=== PATIENT | female | born 1960 | race Caucasian/White ===

== ENCOUNTER → 2020-12-21 14:58 | Outpatient (BNVA) | payer OTHER, SELFPAY | PROVIDERS: Visit Provider Emergency Medicine | DX: Z20.822 Contact with and (suspected) exposure to COVID-19 (principal) | CPT/HCPCS: 87635 ==

== ENCOUNTER → 2021-11-19 14:04 | Outpatient (BNVA) | payer BC, SELFPAY | PROVIDERS: Visit Provider Psychiatry & Neurology Psychiatry | DX: F32.2 Major depressive disorder, single episode, severe without psychotic features (principal) | CPT/HCPCS: 80053; 80061; 80178; 82306; 84439; 84443; 84481; 85025 ==

== ENCOUNTER 2022-06-23 10:54 | Outpatient (CLI) | payer BC, SELFPAY ==
--- NOTE | 2022-06-23 11:34 | MM_ITS ---
WS: [id number] SCREENING DIGITAL BREAST TOMOSYNTHESIS MAMMOGRAM WITH CAD HISTORY: SCREENING COMPARISON: None available. Bilateral CC and MLO with tomosynthesis and synthetic mammography submitted. Computer aided detection analyzed. Breast composition: There are scattered areas of fibroglandular density. Well-circumscribed 15 x 13 m m mass in the anterior LEFT breast near 7:00. This is just posterior to the nipple. No distortion. Be nign calcifications in each breast. MM/[place] [id number] IMPRESSION: BI-RADS: 0-Incomplete: Need additional imaging evaluation FOLLOW UP: Need Additional Imaging Recommendation: LEFT breast ultrasound anterior breast near 7:00.
== END 2022-06-23 10:55 | disposition home or self-care (01) ==
PROVIDERS: Visit Provider Family Medicine
DX: Z12.31 Encounter for screening mammogram for malignant neoplasm of breast (principal)
CPT/HCPCS: 77063; 77067

== ENCOUNTER 2022-07-21 15:14 | Outpatient (CLI) | payer BC, SELFPAY ==
--- NOTE | 2022-07-21 15:15 | US_ITS ---
WS: [email or web address] ULTRASOUND LEFT BREAST HISTORY: Abnormal finding on mammogram COMPARISON: Mammogram 06/23/2022 TECHNIQUE: 2-D and Doppler. LEFT breast 7:00, subareolar is imaged. This corresponds to the mammographic abnormality. There is a mixed echogenicity mass which is slightly bilobed measuring 1.6 x 1.2 x 1.1 cm. There are both cystic and solid components. The solid component does move but there is also some increased vascularity. Fa vor this is probably a complex cystic nodule but due to the solid component recommend further evaluat ion. US/US breast LT limited* [id number] IMPRESSION: BI-RADS: 4-Suspicious Finding-Biopsy Should Be Considered FOLLOW-UP: Biopsy Recommended Ultrasound-guided biopsy recommended of the complex cystic nodule LEFT breast a t 7:00.
== END 2022-07-21 15:15 | disposition home or self-care (01) ==
LOC: RAD 15:19
PROVIDERS: PCP Family Medicine; Visit Provider Family Medicine
DX: R92.8 Other abnormal and inconclusive findings on diagnostic imaging of breast (principal); N63.24 Unspecified lump in the left breast, lower inner quadrant
CPT/HCPCS: 76642

== ENCOUNTER 2022-08-20 07:59 | Outpatient (CLI) | payer BC, SELFPAY ==
--- NOTE | 2022-08-20 08:45 | US_ITS ---
WS: [email or web address] ULTRASOUND-GUIDED LEFT BREAST BIOPSY CLINICAL INFORMATION: Suspicious cyst on mammogram/US COMPARISON: July 21, 2022 FINDINGS: The procedure including risks, benefits, and complications were discussed with the patient who agreed to proceed. Using sterile technique patient was prepped and draped in the usual sterile fashion. Aft er 1% lidocaine utilizing real-time ultrasound guidance 4 14-gauge cores were obtained of the LEFT br east lesion at the 7 o'clock position subareolar. Cystic portion of the nodule collapsed after the in itial biopsy. A titanium clip was placed in the biopsy cavity. No immediate complications. Pathology demonstrates A. Breast, left, 7 o'clock, subareolar , biopsy: - Benign fibrocystic disease. - No malignancy identified. US/[place] [id number] IMPRESSION: 1. Uncomplicated ultrasound-guided LEFT breast biopsy. 2. The pathology demonstrates benign fibrocystic disease. No malignancy identi fied. 3. Recommend return to annual screening mammography. BI-RADS: 2-Benign FOLLOW UP: 1 Year Follow-up
== END 2022-08-20 08:00 | disposition home or self-care (01) ==
LOC: RAD 08:01
PROVIDERS: PCP Family Medicine; Visit Provider Family Medicine
DX: R92.8 Other abnormal and inconclusive findings on diagnostic imaging of breast (principal); N63.42 Unspecified lump in left breast, subareolar; N60.12 Diffuse cystic mastopathy of left breast
CPT/HCPCS: 19083; 88305

== ENCOUNTER → 2022-10-27 10:16 | Outpatient (BNVA) | payer BC, SELFPAY | PROVIDERS: PCP Family Medicine; Visit Provider Family Medicine | DX: Z51.81 Encounter for therapeutic drug level monitoring (principal); E03.9 Hypothyroidism, unspecified; Z13.220 Encounter for screening for lipoid disorders; I10 Essential (primary) hypertension | CPT/HCPCS: 80053; 80061; 83036; 84439; 84443; 85025 ==

== ENCOUNTER → 2022-12-01 12:01 | Outpatient (BNVA) | payer BC, SELFPAY | PROVIDERS: PCP Family Medicine; Visit Provider Family Medicine | DX: Z51.81 Encounter for therapeutic drug level monitoring (principal) | CPT/HCPCS: 80178 ==

== ENCOUNTER 2023-02-04 12:11 | Outpatient (CLI) | payer BC, SELFPAY ==
--- NOTE | 2023-02-04 12:25 | XR_ITS ---
WS: [email or web address] Exam: XR lumbar spine 2-3V* [id number] Date/Time of Exam: 02/04/2023 12:33 PM Reason For Exam: Right lumbar radiculopathy No fracture or dislocation. Disc spaces are well-maintained. Slight levoscoliosis that may be positio nal. Posterior elements are intact. A 12 x 5 mm calcification seen along the LEFT transverse process of L5. IMPRESSION: 1. No fracture or malalignment. 2. 12 x 5 mm LEFT paraspinal calcification at about the level of L5. This is nonspecific in appearanc e but a urinary tract stone might have this appearance.
== END 2023-02-04 12:12 | disposition home or self-care (01) ==
PROVIDERS: PCP Family Medicine; Visit Provider Family Medicine
DX: M54.16 Radiculopathy, lumbar region (principal)
CPT/HCPCS: 72100

== ENCOUNTER 2023-06-16 13:25 | Observation (INO) | payer BC, SELFPAY ==
[2023-06-12 11:00] LABS: Basophils # 0.1 10^3/uL (0.0-0.1); Basophils % 0.8 %; Eosinophils # 0.4 10^3/uL (0.0-0.8); Eosinophils % 3.1 %; Hematocrit 42.3 % (36-47); Lymphocytes # 3.1 10^3/uL (0.8-4.8); Lymphocytes % 26.6 %; Mean Corpuscular HGB Conc 31.7 g/dL (30-55); Mean Corpuscular Hemoglobin 28.5 pg (27-33); Mean Corpuscular Volume 89.8 fl (85-98); Monocytes # 0.5 10^3/uL (0.2-0.9); Monocytes % 4.1 %; Neutrophils # 7.46 10^3/uL (1.8-7.7); Neutrophils % 65.1 %; Nucleated Red Blood Cells % 0 %; Platelet Count 383 10^3/cmm (157-399); Red Blood Count 4.71 10^6/uL (3.85-5.65); Red Cell Distribution Width 12.2 % (12.1-15.1); White Blood Count 11.47 10^3/uL (3.29-11.43)
[2023-06-12 11:11] LABS: Add Urine Culture? Yes; Add Urine Microscopic? YES; Bacteria Urine 3+ /hpf; Bilirubin Urine Neg (Negative); Blood Urine 3+ (Negative); Glucose Urine UA Norm (Normal); Ketones Urine 1+ (Negative); Leukocyte Esterase Urine 2+ (Negative); Nitrate Urine Positive (Negative); Protein Urine Trace (Negative); RBC Urine 0-4 /hpf (0-2); Specific Gravity, Urine 1.015 (1.005-1.030); Urine Appearance Cloudy (CLEAR); Urine Color Yellow (Yellow); Urobilinogen Urine Norm (Negative); WBC Urine >100 /hpf (0-5); pH Urine 7 (5-7)
[2023-06-12 11:19] LABS: Alanine Aminotransferase 10 U/L (0-33); Alkaline Phosphatase 101 U/L (35-105); Anion Gap 12.3 (5-19); Aspartate Amino Transferase 13 U/L (0-32); Blood Urea Nitrogen 7 mg/dL (8-23); Calcium 9.6 mg/dL (8.5-10.5); Carbon Dioxide 24 mmol/L (22-29); Chloride 107 mmol/L (98-107); Globulin 3.4 g/dL (1.3-4.6); Glomerular Filtration Rate 72.7 mL/min (90-130); Glucose 109 mg/dL (65-115); Osmolality Calculated 287 mOsm/kg (285-295); Potassium 4.3 mmol/L (3.5-5.1); Sodium 139 mmol/L (136-145); Total Bilirubin 0.3 mg/dL (0.15-1.2); Total Protein 7.4 g/dL (6.6-8.7)
[2023-06-16] VITALS (16 sets, daily range): BP systolic 107–183; BP diastolic 59–107; PULSE 64–84; RESP 7–18; TEMP 36.2–36.8; O2SAT 90–100; BMI 30.4
[2023-06-16] MEDS: enoxaparin 30 mg/0.3 mL Syringe SUBCUT (08:38)
[2023-06-16] MEDS: sodium chloride 0.9% 500 ML IV (08:38)
[2023-06-16] MEDS: sodium chloride 0.9% 1,000 ML 10 ML IV (08:40)
[2023-06-16] MEDS: scopolamine 1.5 Patch 1 PATCH TRANSDERMA (08:50)
--- NOTE | 2023-06-16 08:51 | P.ANESASSM_ITS ---
Pre-Anesthetic Assessment Height/Weight: Height 1.73 m Weight 90.718 kg Temp Pulse Resp BP Pulse Ox O2 Del Method 97.2 F L 84 17 183/107 94 Room Air 06/16/23 08:23 06/16/23 08:23 06/16/23 08:23 06/16/23 08:23 06/16/23 08:23 06/16/23 08:24 Preop Diagnosis: CYstocele stage 2, Mix urinary incontinence Operation Date: 06/16/23 09:55 Proposed Procedures p Anterior colporrhaphy 15051, Midurethral sling 29075 N81.10, N39.3(Not Applicable) - Tee Gomez MD s Sling Single Incision Midurethral Sling(Not Applicable) - Tee Gomez MD Was Beta Aleks taken within 24 hours: Yes Was Clonidine taken within 24 hours: N/A Last intake: Intake Last Liquid Date 06/15/23 Last Liquid Time 22:30 Last Solid Date 06/15/23 Last Solid Time 22:30 Social No tobacco Exam alert and oriented x 3 Airway Submandibular: within normal limits Cervical ROM: within normal limits Mallampati: Class III History/ROS No significant history except as noted and No significant complaints CV/HEM Hypertension Metabolic Hyperlipidemia and Thyroid Disease Musc/skel Lower Back Pain Neuropsych Anxiety Anesthetic Plan ASA status: 2 Anesthesia: General Risk of > 500 ml blood loss (7ml/kg in children): No Medications/Allergies Home Medications Medication Instructions Recorded Confirmed Last Taken Type desvenlafaxine succinate 50 mg 50 mg PO DAILY 12/21/20 06/16/23 06/15/23 History tablet,extended release 24 hr (Pristiq) lithium carbonate 450 mg 450 mg PO DAILY 12/21/20 06/16/23 06/15/23 History tablet,extended release trazodone 50 mg tablet 50 mg PO DAILY 09/03/22 06/16/23 06/15/23 History bupropion HBr 348 mg 348 mg PO DAILY 02/26/23 06/16/23 06/15/23 History tablet,extended release 24 hr (Aplenzin) cyclobenzaprine 10 mg tablet 10 mg PO TID PRN muscle spasm #30 03/30/23 06/16/23 06/09/23 Rx tabs carvedilol 12.5 mg tablet 12.5 mg PO BID #60 tabs 11/08/23 01/09/24 01/09/24 Rx oxybutynin chloride 5 mg 5 mg PO DAILY #30 tabs 04/17/23 06/16/23 06/15/23 Rx tablet,extended release 24 hr atorvastatin 10 mg tablet 10 mg PO BEDTIME 06/12/23 06/16/23 06/15/23 History levothyroxine 112 mcg tablet 112 mcg PO DAILY 06/12/23 06/16/23 06/16/23 History Allergies Allergy/AdvReac Type Severity Reaction Status Date / Time No Known Allergies Allergy Verified 06/04/23 08:00 Current Medications Generic Name Dose Route Start Last Admin Trade Name Freq PRN Reason Stop Dose Admin Sodium Chloride 500 mls @ 500 mls/hr 06/16/23 08:12 06/16/23 08:38 Sodium Chloride 0.9% IV 06/16/23 09:11 500 mls/hr ONCE ONE Administration Sodium Chloride 1,000 mls @ 30 mls/hr 06/16/23 08:15 06/16/23 08:40 Sodium Chloride 0.9% IV 06/17/23 08:14 10 mls/hr .Q24H KELLY Administration PFSH Anesthesia Medical History Major depression Hypothyroidism Hypertension Surgical History Hx of cataract surgery December 2021 Social History Smoking and tobacco/nicotine status: never used tobacco/nicotine Alcohol intake: current Alcohol intake frequency: holidays/special occasions only Data Anesthesia 06/12/23 10:37 06/12/23 10:37 Cardiac Studies: 2 No Data to Display
[2023-06-16] MEDS: midazolam 1 mg/mL INJ 2 mL 2 MG IVP (09:05)
--- NOTE | 2023-06-16 11:01 | W.PM.OPSUD ---
Surgery/Procedure H&P Update DATE OF PROCEDURE: June 16, 2023 DATE H&P PERFORMED: 06/04/23 H&P UPDATE INFORMATION: I have reviewed H&P completed within last 30 days, I have examined patient prior to procedure and No changes to prior documentation PREOP DIAGNOSIS: CYstocele stage 2, Mix urinary incontinence PLANNED PROCEDURE: Operation Date: 06/16/23 09:55 Proposed Procedures p Anterior colporrhaphy 57401, Midurethral sling 14199 N81.10, N39.3(Not Applicable) - Tee Gomez MD s Sling Single Incision Midurethral Sling(Not Applicable) - Tee Gomez MD
[2023-06-16] MEDS: ceFAZolin 2,000 MG in sodium chloride 0.9% (plus) 50 ML 100 MG IV (11:15)
[2023-06-16] MEDS: lidocaine-epi 2% 20 mL INJ INJECTION (11:55)
--- NOTE | 2023-06-16 12:34 | PM.OP ---
Operative Report Date of procedure: June 16, 2023 Pre-op diagnosis: Cystocele Mixed urinary incontinence Post-op diagnosis: same Procedure done: Single incision mid urethral sling Implants: Coloplast Altis midurethral sling Specimens removed/disposition: None Surgeon: Tee Gomez MD Estimated blood loss (mL): 10 IV fluids (mL): 800 Urine output (mL): 600 Complications: None Findings: After placement of mid urethral sling the cystocele resolved and no anterior colporrhaphy was needed. Procedure: After obtaining informed consent, the patient was taken to the operating room and placed in the supine position, given general anesthesia, and prepped and draped in sterile fashion. The abdomen, vulva and vagina were prepped and draped in a sterile manner. A time out procedure was performed. The anterior vaginal mucosa beneath the midurethra was infiltrated with 0.5% Marcaine with epinephrine. A vertical midline incision was made beneath the midurethra, nearly 1.5 cm length. Careful submucosal dissection was performed bilaterally up to the interior portion of the inferior pubic ramus. The insertion of adductor longus tendon on the patient?s pubic ramus was identified as reference land monalisa. Palpated the notch along the internal edge of ischiopubic ramus where the adductor longus tendon and the inferior pubic ramus meet. The Altis single incision sling (SIS) was selected. Then the needle of the SIS inserted aiming at the location of this notch. One of the integrated self-fixating tips place onto the needle by sliding it over the end of the needle. The needle/sling assembly was inserted toward the location of identified reference notch making sure that the flat of the handle is perpendicular to the desired path. The needle was tracked along the posterior surface of the ischiopubic ramus until the midline monalisa on the mesh is approximately at the midline position under the urethra. The needle was removed and the same was repeated on the contralateral side until the appropriate sling tension under the urethra was achieved ensuring that the mesh lays flat. The needle was removed and vaginal incision was closed in a running interlocking fashion with 2-0 Vicryl. After placement of the single incision mid urethral slingThe mild cystocele resolved. No anterior colporrhaphy was needed. Then the Damon catheter was removed and cystoscope was inserted. The bladder was filled with sterile water. Complete evaluation of the bladder mucosa was performed noting no lacerations, dimpling, tears, bleeding of the mucosa or muscular layers. Both ureteral orifices were identified. Prompt excretion of urine from both ureteral orifices was noted. Cystoscope was withdrawn. The Damon catheter was replaced. Excellent hemostasis was obtained. A vaginal pack is placed overnight as postoperative support for the vaginal tissues after graft placement and closure of vaginal incisions. Sponge, lap, needle, and instrument counts were correct times three. The patient was taken to the recovery room, awake and in stable condition.
[2023-06-16] MEDS: dextrose 5%-lactated ringers 1,000 ML 125 ML IV ×2 (14:20→22:39)
[2023-06-16] MEDS: ketorolac 30 mg/mL INJ IVP ×2 (14:23→19:49)
[2023-06-16] MEDS: ondansetron 2 mg/ML SDV 2 mL 4 MG IVP (16:47)
[2023-06-16] MEDS: HYDROcodone-acetaminophen 5-325 mg Tablet PO (16:47)
--- NOTE | 2023-06-16 16:56 | ANE.PACU2 ---
Inpatient post-anesthesia follow up: Airway intact: Yes Vital signs: Temperature 98.3 F Pulse Rate 80 Respiratory Rate 16 Blood Pressure 144/67 Pulse Oximetry 98 Oxygen Delivery Me thod Room Air Oxygen Flow Rate 8 Fraction of Inspir ed Oxygen Hydration adequate: Yes Nausea and vomiting: No Pain level: 3 Mental status: Baseline
[2023-06-16] MEDS: carvedilol 12.5 mg Tablet PO (18:14)
[2023-06-16] MEDS: docusate sodium 100 mg Capsule PO (18:14)
[2023-06-16] MEDS: atorvastatin 40 mg Tablet 20 MG PO (22:10)
[2023-06-17 01:16] VITALS: BP 121/60; PULSE 66; RESP 16; TEMP 36.6; O2SAT 95
[2023-06-17 05:32] VITALS: BP 132/65; PULSE 68; RESP 14; TEMP 36.7; O2SAT 97
[2023-06-17 06:26] LABS: Hematocrit 39.4 % (36-47); Mean Corpuscular HGB Conc 31.5 g/dL (30-55); Mean Corpuscular Hemoglobin 28.5 pg (27-33); Mean Corpuscular Volume 90.6 fl (85-98); Platelet Count 362 10^3/cmm (157-399); Red Blood Count 4.35 10^6/uL (3.85-5.65); Red Cell Distribution Width 11.9 % (12.1-15.1); White Blood Count 15.84 10^3/uL (3.29-11.43)
[2023-06-17] MEDS: lithium carbonate ER 450 mg Tablet PO (09:34)
[2023-06-17] MEDS: oxybutynin chloride XL 5 MG TABLET PO (09:34)
[2023-06-17] MEDS: docusate sodium 100 mg Capsule PO (09:34)
[2023-06-17] MEDS: levothyroxine 112 mcg Tablet PO (09:35)
[2023-06-17] MEDS: carvedilol 12.5 mg Tablet PO (09:35)
[2023-06-17] MEDS: desvenlafaxine 50 mg Tablet PO (09:35)
[2023-06-17 09:39] VITALS: BP 144/63; PULSE 64; RESP 18; TEMP 37; O2SAT 98
--- NOTE | 2023-06-17 09:41 | P.DS_ITS ---
Discharge Providers SCHOOL BUS TECHNICIAN Date of Admission: 06/16/23 13:25 Date of Discharge: 06/17/23 Attending Provider at Admission: Tee Gomez MD Attending Provider at Discharge: Tee Gomez MD Primary SCHOOL BUS TECHNICIAN: Tee Gomez MD Primary Care Provider: Oh Machado MD Reason for Visit Reason for Visit: N81.10, N39.3 Hospital Course Hospital Course Mrs. Goel 63-year-old female with a history of mixed incontinence and cystocele. She was admitted for planned anterior colporrhaphy and single incision mid urethral sling. After performing the mid urethral sling the small cystocele resolved and no anterior colporrhaphy was performed. Overnight observation was uneventful. PVR was within normal limits. Tolerating diet well. Ambulating without difficulty. The patient was counseled regarding pelvic rest for 6 weeks (no sex, no tampons, no vaginal douches). Return to the emergency room if any fever, increased bleeding or pain. Physical Exam Narrative: GA: Alert and oriented ?3. HEENT: WNL. Heart: Regular rate and rhythm. Lungs: Clear to auscultation bilaterally. Abdomen: Bowel sounds present, nontender. HOME THEATER INSTALLER: Spotting bleeding. Extremities: No edema, no cyanosis, no calves pain. Urinary Catheter Management: Damon: Cath Placed During This Visit: yes, but has since been removed by the nurse Reason for Continuing Indwelling Catheter: Decision to DC Catheter Urinary Catheter Date of Insertion: 06/16/23 Urinary Catheter Time of Insertion: 11:55 Date Urinary Catheter Removed: 06/17/23 Time Urinary Catheter Discontinued: 05:41 History History History 3 Term 3 0 Miscarriages/Ectopic 0 Living Children 3 Discharge Data Studies Completed and Pending Laboratory Results WBC 15.84 10^3/uL (3.29-11.43) H 06/17/23 06:20 RBC 4.35 10^6/uL (3.85-5.65) 06/17/23 06:20 Hgb 12.40 g/dL (11.27-16.99) 06/17/23 06:20 Hct 39.4 % (36-47) 06/17/23 06:20 MCV 90.6 fl (85-98) 06/17/23 06:20 MCH 28.5 pg (27-33) 06/17/23 06:20 MCHC 31.5 g/dL (30-55) 06/17/23 06:20 RDW 11.9 % (12.1-15.1) L 06/17/23 06:20 Plt Count 362 10^3/cmm (157-399) 06/17/23 06:20 MPV 10.0 fL (7.4-10.4) 06/17/23 06:20 Neut % (Auto) 65.1 % 06/12/23 10:37 Lymph % (Auto) 26.6 % 06/12/23 10:37 Stephens % (Auto) 4.1 % 06/12/23 10:37 Eos % (Auto) 3.1 % 06/12/23 10:37 Baso % (Auto) 0.8 % 06/12/23 10:37 Neut # (Auto) 7.46 10^3/uL (1.8-7.7) 06/12/23 10:37 Lymph # (Auto) 3.1 10^3/uL (0.8-4.8) 06/12/23 10:37 Stephens # (Auto) 0.5 10^3/uL (0.2-0.9) 06/12/23 10:37 Eos # (Auto) 0.4 10^3/uL (0.0-0.8) 06/12/23 10:37 Baso # (Auto) 0.1 10^3/uL (0.0-0.1) 06/12/23 10:37 Nucleated RBC % (auto) 0 % 06/12/23 10:37 Nucleated RBCs # 0.0 /100WBC 06/12/23 10:37 Sodium 139 mmol/L (136-145) 06/12/23 10:37 Potassium 4.3 mmol/L (3.5-5.1) 06/12/23 10:37 Chloride 107 mmol/L (98-107) 06/12/23 10:37 Carbon Dioxide 24 mmol/L (22-29) 06/12/23 10:37 Anion Gap 12.3 (5-19) 06/12/23 10:37 BUN 7 mg/dL (8-23) L 06/12/23 10:37 Creatinine 0.8 mg/dL (0.5-0.9) 06/12/23 10:37 GFR Calculation 72.7 mL/min (90-130) L 06/12/23 10:37 Glucose 109 mg/dL (65-115) 06/12/23 10:37 Calculated Osmolality 287 mOsm/kg (285-295) 06/12/23 10:37 Calcium 9.6 mg/dL (8.5-10.5) 06/12/23 10:37 Total Bilirubin 0.3 mg/dL (0.15-1.2) 06/12/23 10:37 AST 13 U/L (0-32) 06/12/23 10:37 ALT 10 U/L (0-33) 06/12/23 10:37 Alkaline Phosphatase 101 U/L (35-105) 06/12/23 10:37 Total Protein 7.4 g/dL (6.6-8.7) 06/12/23 10:37 Albumin 4.0 g/dL (3.5-5.2) 06/12/23 10:37 Globulin 3.4 g/dL (1.3-4.6) 06/12/23 10:37 Urine Color Yellow (Yellow) 06/12/23 10:30 Urine Appearance Cloudy (CLEAR) A 06/12/23 10:30 Urine pH 7 (5-7) 06/12/23 10:30 Ur Specific [place] 1.015 (1.005-1.030) 06/12/23 10:30 Urine Protein Trace (Negative) 06/12/23 10:30 Urine Glucose (UA) Norm (Normal) 06/12/23 10:30 Urine Ketones 1+ (Negative) H 06/12/23 10:30 Urine Blood 3+ (Negative) H 06/12/23 10:30 Urine Nitrate Positive (Negative) H 06/12/23 10:30 Urine Bilirubin Neg (Negative) 06/12/23 10:30 Urine Urobilinogen Norm mg/dL (Negative) 06/12/23 10:30 Ur Leukocyte Esterase 2+ (Negative) H 06/12/23 10:30 Urine RBC 0-4 /hpf (0-2) H 06/12/23 10:30 Urine WBC >100 /hpf (0-5) H 06/12/23 10:30 Ur Squamous Epith Cells 5-10 /hpf (0-5) H 06/12/23 10:30 Amorphous Sediment Not Reportable 06/12/23 10:30 Urine Bacteria 3+ /hpf (NONE) H 06/12/23 10:30 Blood Type O Positive 06/16/23 08:40 Rho(D) Type Rh positive 06/16/23 08:40 Antibody Screen Negative 06/16/23 08:40 Vitals Last Vital Signs Temp 98.1 F 06/17/23 05:32 Pulse 68 06/17/23 05:32 Resp 14 06/17/23 05:32 BP 132/65 06/17/23 05:32 Pulse Ox 97 06/17/23 05:32 O2 Del Method Room Air 06/17/23 05:32 O2 Flow Rate 8 06/16/23 12:57 Results Labs OB ([facility]): Blood Type O Positive 06/16/23 Antibody Screen Negative 06/16/23 Hct 39.4 % (36-47) 06/17/23 Hgb 12.40 g/dL (11.27-16.99) 06/17/23 Rho(D) Type Rh positive 06/16/23 Plt Count 362 10^3/cmm (157-399) 06/17/23 TSH 0.03 uIU/mL (0.27-4.20) L 10/27/22 Free T4 1.25 ng/dL (0.82-1.77) 10/27/22 Hemoglobin A1c 5.2 % (4.0-6.0) 10/27/22 Micro Urine Specimen 06/12/23 Discharge Plan Discharge Patient Disposition: Home Condition: Stable Prescriptions: New hydrocodone-acetaminophen 7.5-325 mg tablet 1 tab PO Q8H PRN (Reason: Postoperative pain) Qty: 5 0RF acetaminophen 325 mg capsule 325 mg PO Q4H PRN (Reason: fever or postoperative pain pain) Qty: 60 0RF ibuprofen 800 mg tablet 800 mg PO TID PRN (Reason: pain) Qty: 60 0RF Continued desvenlafaxine succinate [Pristiq] 50 mg tablet extended release 24 hr 50 mg PO DAILY lithium carbonate 450 mg tablet extended release 450 mg PO DAILY trazodone 50 mg tablet 50 mg PO DAILY Aplenzin 348 mg tablet extended release 24 hr 348 mg PO DAILY cyclobenzaprine 10 mg tablet 10 mg PO TID PRN (Reason: muscle spasm) Qty: 30 2RF carvedilol 12.5 mg tablet 12.5 mg PO BID Qty: 60 6RF Rx Instructions: must administer with a meal/food oxybutynin chloride 5 mg tablet extended release 24hr 5 mg PO DAILY Qty: 30 3RF atorvastatin 10 mg tablet 10 mg PO BEDTIME Rx Instructions: TAKE 1 TABLET BY MOUTH ONCE DAILY AT BEDTIME levothyroxine 112 mcg tablet 112 mcg PO DAILY Rx Instructions: TAKE 1 TABLET BY MOUTH ONCE DAILY IN THE MORNING; 30 MINUTES BEFORE BREAKFAST WITH WATER ONLY Discharge Orders: Discharge Order (Routine); Ordered 06/17/23 Ordered By: Tee Gomez Referrals: Tee Gomez MD [Physician] - 06/30/23 9:15 am (Your post op appointments are with Dr. Gomez on 06/30/2023 at 9:15am and 07/27/2022 at 11:00am. ) Discharge Diet: Usual diet Discharge Activity: Limit activity as instructed Patient Instructions: Cystoscopy (DC), Bladder Sling for Women (DC), OB Discharge Report, OB Food/Drug Interaction Guide, Opioid Safety Activity Restrictions/Additional Instructions: 1. Please call [facility] on next working day to make your post-operative appointment in 2 weeks. 2. Please stay home until you come back to the clinic on first post- hospatilization check up. 3. Please follow instructions on your medications CAREFULLY. 4. If you have abdominal incision, do not cover it unless dressing is necessary because of drainage. OK to shower, but avoid bath. Leave steri-strips until they fall off. If they are still on one week after surgery, you may remove them. 5. If you had vaginal surgery or vaginal repair, Dr. Gomez may instruct you to take SITZ bath. 6. Yellow, blood tinged odorous vaginal discharge is usually normal after hyst erectomy or vaginal surgeries. 7. No SEXUAL INTERCOURSE, tampons, or douches until you are completely released from the post-operative care. 8. Avoid constipation by eating right and maybe using some Metamucil or Milk of Magnesia. 9. All prescription refills are given during the working hours. Please do no wait till it runs out. Call the clinic at [phone] before your medication runs out. The clinic will get in touch with your doctor to prescribe medications if necessary. 10. Please remain within 40 mile radius from our hospital because emergencies do happen now and then during the post-operative period. 11. If you have stairs at home, take one step at a time slowly and minimize the number of trips. It helps to stay in one floor for the next few days. No lifting except what you can lift by one hand until you are released from the post-operative care. 12. Driving is discouraged until you are well healed. It may be 3-4 weeks before you feel strong enough to drive. You should be able to turn and look through the rear window without pain and you should be able to push the brake pedal very hard without pain before you drive. No fast rules, but SAFETY should be your primary concern. DO NOT drive if you are on sedating medications such as narcotics. 13. Call the clinic (during working hours) to make urgent appointment or go to the Emergency room, if any of the following occurs: i. Vaginal bleeding becomes heavy, more than a period. ii. Incision becomes red and sore, or drains pus. iii. Your TEMPERATURE is over 100.4F or you have chill. iv. IV site becomes red and swollen (a little ``knot?? is usually OK) v. Persistent nausea and vomiting vi. Persistent constipation or diarrhea vii. Rash or allergic reaction to medications. Discharge Attestations SCHOOL BUS TECHNICIAN Time Spent in Discharge Care*: greater than 30 min Coding Level of Care Code Acute Code for Chg Fwd
[2023-06-17 10:55] VITALS: BP 144/63; PULSE 64; RESP 18; TEMP 37; O2SAT 98
== END 2023-06-17 10:55 | disposition home or self-care (01) ==
LOC: OBGYN 16:09
PROVIDERS: Admitting Provider Obstetrics & Gynecology; PCP Family Medicine; Visit Provider Obstetrics & Gynecology
PROC: 0JQC0ZZ Repair Pelvic Region Subcutaneous Tissue and Fascia, Open Approach (ICD-10-PCS; CPT 57240; principal; 2023-06-16 09:45)
PROC: 0TJB8ZZ Inspection of Bladder, Via Natural or Artificial Opening Endoscopic (ICD-10-PCS; CPT 52000; 2023-06-16 09:45)
DX: N39.46 Mixed incontinence (principal); I10 Essential (primary) hypertension; E78.5 Hyperlipidemia, unspecified; E03.9 Hypothyroidism, unspecified; Z90.710 Acquired absence of both cervix and uterus
CPT/HCPCS: 57288; 36415; 80053; 81001; 85025; 85027; 86850; 86900; 87077; 87086; 87186; C1713; G0378; J0131; J0690; J1100; J1170; J1200; J1650; J1885; J2250; J2371; J2405; J2704; J3010; J3490; J7030; J7040; J7121

== ENCOUNTER → 2023-08-12 12:09 | Outpatient (BNVA) | payer BC, SELFPAY | PROVIDERS: PCP Family Medicine; Visit Provider Family Medicine | DX: Z51.81 Encounter for therapeutic drug level monitoring (principal) | CPT/HCPCS: 80178 ==

== ENCOUNTER → 2023-09-29 14:08 | Outpatient (BNVA) | payer BC, SELFPAY | PROVIDERS: PCP Family Medicine; Visit Provider Family Medicine | DX: Z51.81 Encounter for therapeutic drug level monitoring (principal); R42 Dizziness and giddiness; R51.9 Headache, unspecified; R26.81 Unsteadiness on feet | CPT/HCPCS: 80053; 85025 ==

== ENCOUNTER 2023-10-02 11:27 | Outpatient (CLI) | payer BC, SELFPAY ==
--- NOTE | 2023-10-02 11:35 | MM_ITS ---
WS: [email or web address] BILATERAL 3D TOMOSYNTHESIS DIGITAL SCREENING MAMMOGRAPHY WITH CAD CLINICAL INFORMATION: SCREENING HISTORY: Screening mammogram. No current complaints. COMPARISON: 2022 TECHNIQUE: Bilateral CC and MLO views. FINDINGS: Scattered fibroglandular densities bilaterally. No suspicious focal mass, asymmetry, calcifications, or architectural distortion. No evidence of malignancy. A few incidental punctate calcifications. Bio psy clip anterior LEFT breast with small associated nodule decreased in size compared to previous. IMPRESSION: MM/[place] [id number] BI-RADS: 2-Benign FOLLOW UP: 1 Year Follow-up Recommend return to annual screening mammography.
== END 2023-10-02 11:28 | disposition home or self-care (01) ==
LOC: RAD 11:28
PROVIDERS: PCP Family Medicine; Visit Provider Family Medicine
DX: Z12.31 Encounter for screening mammogram for malignant neoplasm of breast (principal); R92.323 Mammographic fibroglandular density, bilateral breasts; R92.8 Other abnormal and inconclusive findings on diagnostic imaging of breast
CPT/HCPCS: 77063; 77067

== ENCOUNTER 2023-12-16 13:26 | Outpatient (CLI) | payer BC, SELFPAY ==
--- NOTE | 2023-12-16 13:31 | MR_ITS ---
WS: [email or web address] MRI HEAD WITH CONTRAST TECHNIQUE: Sagittal T1, T2 axial, T2 axial FLAIR, axial susceptibility weighted imaging, axial diffus ion weighted images, and coronal T2 images were obtained. Pre and post-T1 axial and post T1 coronal i mages. ADC and FSPGR images. CLINICAL INFORMATION: New onset headaches, vertigo, gait instability, nausea COMPARISON: None. FINDINGS: No evidence of restricted diffusion to suggest acute ischemia. Ventricular system and basal cisterns are patent. Minimal small vessel changes. Evidence of prior cortical ischemia in the RIGHT frontal lo be near the vertex. Mild parenchymal volume loss. Normal posterior fossa. Normal vascular flow voids at the skull base. No extra-axial fluid collections. No evidence of mass or mass effect. Paranasal sinuses and mastoid air cells are well aerated. No hemosiderin on the susceptibly weighted images. Normal optic chiasm and pituitary infundibulum. Temporal lobes and hippocampal formations ar e normal in appearance. No abnormal gadolinium enhancement. No abnormal gadolinium enhancement. MR/MR head wo/w con [id number] IMPRESSION: 1. No evidence of restricted diffusion to suggest acute ischemia. 2. Minimal small vessel changes with mild parenchymal volume loss. 3. Small area of prior cortical ischemia in the RIGHT frontal lobe near the ve rtex. 4. No hemosiderin on the susceptibly weighted images. 5. No other suspicious findings.
[2023-12-16] MEDS: gadobenate dimeglumine 20 mL vial IV (14:02)
== END 2023-12-16 13:27 | disposition home or self-care (01) ==
LOC: RAD 13:27
PROVIDERS: PCP Family Medicine; Visit Provider Family Medicine
DX: R42 Dizziness and giddiness (principal); R51.9 Headache, unspecified; R26.81 Unsteadiness on feet; Z86.73 Personal history of transient ischemic attack (TIA), and cerebral infarction without residual deficits
CPT/HCPCS: 70553; A9577

== ENCOUNTER → 2024-02-16 13:59 | Outpatient (BNVA) | payer BC, SELFPAY | PROVIDERS: PCP Family Medicine; Visit Provider Family Medicine | DX: Z51.81 Encounter for therapeutic drug level monitoring (principal); M79.10 Myalgia, unspecified site; W19.XXXA Unspecified fall, initial encounter; E03.9 Hypothyroidism, unspecified | CPT/HCPCS: 80053; 80178; 82550; 84439; 84443; 85025 ==

== ENCOUNTER 2024-03-04 09:42 | Outpatient (RCR) | payer BC, SELFPAY | END 2024-03-07 23:59 | disposition home or self-care (01) | LOC: SPT 09:42 | PROVIDERS: PCP Family Medicine; Visit Provider Family Medicine | DX: M25.552 Pain in left hip (principal) | CPT/HCPCS: 97161 ==

== ENCOUNTER 2024-03-08 06:00 | Outpatient (RCR) | payer BC, SELFPAY | END 2024-04-07 23:59 | disposition home or self-care (01) | LOC: SPT 06:00 | PROVIDERS: PCP Family Medicine; Visit Provider Family Medicine | DX: M25.552 Pain in left hip (principal) | CPT/HCPCS: 97110 ==

== ENCOUNTER 2024-04-13 10:12 | Outpatient (CLI) | payer BC, SELFPAY ==
[2024-04-13 11:00] LABS: Homocysteine 12.18 umol/l (0-15); Magnesium 1.9 mg/dL (1.7-2.3)
[2024-04-13 11:16] LABS: Vitamin B12 220 pg/mL (232-1245)
[2024-04-13 11:34] LABS: Folate Level 14.4 ng/mL (4.8-37.3)
== END 2024-04-13 10:13 | disposition home or self-care (01) ==
PROVIDERS: PCP Family Medicine; Visit Provider Psychiatry & Neurology Neurology
DX: I63.9 Cerebral infarction, unspecified (principal); R42 Dizziness and giddiness
CPT/HCPCS: 36415; 82607; 82652; 82746; 83090; 83735; 83921

== ENCOUNTER 2024-04-25 15:00 | Oncology outpatient (recurring) (ONCR) | payer BC, SELFPAY | END 2024-05-07 23:59 | disposition home or self-care (01) | PROVIDERS: PCP Family Medicine; Visit Provider Internal Medicine Medical Oncology | DX: E53.8 Deficiency of other specified B group vitamins (principal) ==

== ENCOUNTER 2024-05-17 10:50 | Outpatient (CLI) | payer BC, SELFPAY ==
--- NOTE | 2024-05-17 11:00 | MR_ITS ---
WS: [email or web address] MRI LUMBAR SPINE NONCONTRAST TECHNIQUE: Sagittal T1, T2 and STIR imaging. Axial T1 and T2 imaging. CLINICAL INFORMATION: R29.898 - Other symptoms and signs involving the musculos... COMPARISON: None. FINDINGS: Mild lumbar curve. No acute compression. Mild disc bulging worse at L5-S1. L1-L2: Mild facet arthropathy. Spinal canal and foramen are patent. L2-L3: Mild annular bulging. Mild facet arthropathy. Spinal canal and foramen are patent. L3-L4: Mild annular bulging. Mild facet arthropathy. Spinal canal and foramen are patent. L4-L5: Mild annular bulging. Slight narrowing RIGHT subarticular recess. Mild facet arthropathy. Spin al canal and foramen are patent. L5-S1: LEFT eccentric disc osteophyte complex slightly impinges the exiting LEFT L5 nerve root. Mild to moderate LEFT foraminal narrowing. RIGHT foramen is patent. Annular bulging with slight narrowing of the subarticular recess bilaterally. Moderate facet arthropathy. Visualized pelvic bony structures: Normal. Paravertebral soft tissues: Normal. Bilateral renal cysts. MR/MR lumbar spine wo con* [id number] IMPRESSION: 1. Mild to moderate LEFT L5-S1 foraminal narrowing due to LEFT eccentric disc osteophyte complex. 2. Annular bulge L5-S1 with slight narrowing subarticular recess. 3. Mild annular bulging L4-5 with slight narrowing of the RIGHT subarticular r ecess. 4. Moderate facet arthropathy L4-L5 and L5-S1.
--- NOTE | 2024-05-17 11:45 | MR_ITS ---
WS: [id number] MRA HEAD TECHNIQUE: Axial 3-D TOF images obtained with axial images and axial, sagittal, and coronal 2-D refor matted images. CLINICAL INFORMATION: I63.9 - Cerebral infarction, unspecified COMPARISON: None. FINDINGS: Dominant distal LEFT vertebral artery. RIGHT vertebral artery mainly in PICA. Somewhat diminutive but patent basilar artery. 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 Normal vascularity to the FLAT SORTING MACHINE CLERK territory bilateral ly. Both ICAs are patent at the skull base. Normal vascularity to the JERSON and MCA territories bilaterally . No evidence of proximal flow-limiting stenosis. MR/MR angio head wo con [id number] IMPRESSION: 1. No evidence of proximal flow limiting stenosis. 2. 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
== END 2024-05-17 10:51 | disposition home or self-care (01) ==
PROVIDERS: PCP Family Medicine; Visit Provider Psychiatry & Neurology Neurology
DX: I63.9 Cerebral infarction, unspecified (principal); G46.2 Posterior cerebral artery syndrome; M47.896 Other spondylosis, lumbar region; M25.78 Osteophyte, vertebrae; R29.898 Other symptoms and signs involving the musculoskeletal system
CPT/HCPCS: 70544; 72148

== ENCOUNTER → 2024-05-24 15:04 | Outpatient (BNVA) | payer BC, SELFPAY | PROVIDERS: PCP Family Medicine; Visit Provider Internal Medicine | DX: R07.9 Chest pain, unspecified (principal); R00.1 Bradycardia, unspecified | CPT/HCPCS: 93005 ==

== ENCOUNTER 2024-06-06 10:32 | Oncology outpatient (recurring) (ONCR) | payer BC, SELFPAY ==
--- NOTE | 2024-06-06 10:00 | USCV_ITS ---
Sveta Archibald Age: 64 Gender: F : 1960 Exam Date: 06/06/2024 10:52 Ordering Phys: Oscar Dumas M.D ([email or web address]) Technologist: CT Exam Location: [facility] [place] Indication: sob BP: 134 / 70 HR: 59 Rhythm: Sinus Technical Quality: Adequate MEASUREMENTS (Male / Female) Normal Values 2D ECHO LVOT Diameter 2.0 cm LV Ejection Fraction MOD 4C 57.7 % LV Ejection Fraction MOD 2C 50.3 % LV Ejection Fraction 2C AL 50.5 % LA Diameter 2.6 cm RA Systolic Volume 4C AL 24.7 ml RA Systolic Volume 4C MOD 24.4 ml LA Sys Volume AL 35.5 cm cubed LA Sys Volume Index AL 17.8 cm cubed/m squared Aorta at Sinotubular Diameter 2.4 cm M-MODE LA Ao Ratio MM 1.1 AV Cusp Separation MM 1.4 cm DOPPLER AV Peak Velocity 115.0 cm/s LVOT Peak Velocity 100.0 cm/s AV Area Cont Eq vti 2.6 cm squared AV Area Cont Eq pk 2.8 cm squared MV Peak Velocity 110.0 cm/s MV Area PHT 3.4 cm squared Mitral E to A Ratio 1.3 TR Peak Velocity 239.5 cm/s TR Peak Gradient 22.9 mmHg TR Mean Velocity 164.0 cm/s TR Mean Gradient 12.8 mmHg TR Velocity Time Integral 63.6 cm TV Peak E Velocity 59.0 cm/s PV Peak Velocity 90.5 cm/s FINDINGS Left Ventricle Left ventricle is normal in size. LV systolic function is normal with EF 55 to 60%. No regional wall motion abnormalities are seen. Right Ventricle Normal in size and function Right Atrium Normal in size Left Atrium Normal in size Mitral Valve Structurally normal mitral valve. Mild mitral regurgitation. Aortic Valve Structurally normal aortic valve. No significant stenosis or regurgitation. Tricuspid Valve Mild tricuspid regurgitation. Insufficient TR jet to calculate RVSP Pulmonic Valve Not well visualized Pericardium Normal Aorta Normal in size IVC Not well visualized CONCLUSIONS LV systolic function is normal with EF of 55-60% Mild mitral regurgitation Mild tricuspid regurgitation No comparion studies are available. sOcar Dumas MD (Electronically Signed) Final Date: 11 June 2024 12:10 S
== END 2024-06-07 23:59 | disposition home or self-care (01) ==
PROVIDERS: Absent Provider Psychiatry & Neurology Neurology; PCP Family Medicine; Visit Provider Internal Medicine
DX: R07.9 Chest pain, unspecified (principal); R06.09 Other forms of dyspnea; I34.0 Nonrheumatic mitral (valve) insufficiency; I07.1 Rheumatic tricuspid insufficiency
CPT/HCPCS: 93306

== ENCOUNTER → 2024-06-21 10:14 | Outpatient (BNVA) | payer BC, SELFPAY | PROVIDERS: PCP Family Medicine; Visit Provider Orthopaedic Surgery | DX: M54.9 Dorsalgia, unspecified (principal) | CPT/HCPCS: 72110 ==

== ENCOUNTER 2024-06-27 10:39 | Oncology outpatient (recurring) (ONCR) | payer BC, SELFPAY ==
--- NOTE | 2024-06-27 11:00 | MR_ITS ---
WS: [id number] MRA CAROTID WITHOUT AND WITH GADOLINIUM ENHANCEMENT TECHNIQUE: Axial 2-D TOF and gadolinium bolus images obtained with axial images and axial, sagittal, and coronal 2-D reformatted images. CLINICAL INFORMATION: I63.9 - Cerebral infarction, unspecified FINDINGS: RIGHT: RIGHT common carotid artery is patent. No significant RIGHT ICA stenosis. RIGHT ICA is patent to the skull base. LEFT: LEFT common carotid artery is patent. No significant LEFT ICA stenosis. LEFT ICA is patent to t he skull base. LEFT dominant vertebral artery. Smaller but patent RIGHT vertebral artery. Proximal basilar artery is patent. Proximal subclavian arteries are patent. MR/MR angio neck w con* [id number] IMPRESSION: 1. Normal neck MRA. No flow-limiting stenosis.
[2024-06-27] MEDS: gadobenate dimeglumine 20 mL vial 17 ML IV (11:32)
== END 2024-07-08 23:59 | disposition home or self-care (01) ==
LOC: RAD 10:40 → ONCMED 06-28 09:05
PROVIDERS: PCP Family Medicine; Visit Provider Psychiatry & Neurology Neurology
DX: I63.9 Cerebral infarction, unspecified (principal)
CPT/HCPCS: 70548; A9577

== ENCOUNTER → 2024-06-30 13:00 | Outpatient (BNVA) | payer MEDICARE, BC, SELFPAY | PROVIDERS: PCP Family Medicine; Referring Provider Psychiatry & Neurology Neurology; Visit Provider Psychiatry & Neurology Neurology | DX: R56.9 Unspecified convulsions (principal); R55 Syncope and collapse | CPT/HCPCS: 95816 ==

== ENCOUNTER 2024-07-25 12:35 | Oncology outpatient (recurring) (ONCR) | payer BC, SELFPAY ==
[2024-07-25 12:53] LABS: Basophils # 0.1 10^3/uL (0.0-0.1); Eosinophils # 0.5 10^3/uL (0.0-0.8); Eosinophils % 4.9 %; Hematocrit 42.1 % (36-47); Lymphocytes # 3.3 10^3/uL (0.8-4.8); Lymphocytes % 32.4 %; Mean Corpuscular HGB Conc 30.9 g/dL (30-55); Mean Corpuscular Hemoglobin 28.3 pg (27-33); Mean Corpuscular Volume 91.7 fl (85-98); Mean Platelet Volume 9.8 fL (7.4-10.4); Monocytes # 0.4 10^3/uL (0.2-0.9); Monocytes % 4.3 %; Neutrophils # 5.89 10^3/uL (1.8-7.7); Neutrophils % 57.1 %; Nucleated Red Blood Cells % 0 %; Platelet Count 351 10^3/cmm (157-399); Red Blood Count 4.59 10^6/uL (3.85-5.65); Red Cell Distribution Width 11.8 % (12.1-15.1); White Blood Count 10.29 10^3/uL (3.29-11.43)
[2024-07-25 13:11] LABS: Alanine Aminotransferase 11 U/L (0-33); Albumin Level 4.1 g/dL (3.5-5.2); Alkaline Phosphatase 105 U/L (35-105); Anion Gap 10.7 (5-19); Aspartate Amino Transferase 12 U/L (0-32); Blood Urea Nitrogen 10 mg/dL (8-23); Calcium 9.9 mg/dL (8.5-10.5); Carbon Dioxide 28 mmol/L (22-29); Chloride 107 mmol/L (98-107); Creatinine Clr Calc Pharmacy 72.2604; Globulin 2.8 g/dL (1.3-4.6); Glomerular Filtration Rate 63.2 mL/min (90-130); Glucose 94 mg/dL (65-115); Osmolality Calculated 291 mOsm/kg (285-295); Potassium 4.7 mmol/L (3.5-5.1); Sodium 141 mmol/L (136-145); Total Bilirubin 0.2 mg/dL (0.15-1.2); Total Protein 6.9 g/dL (6.6-8.7)
[2024-07-25 13:27] LABS: Vitamin B12 888 pg/mL (232-1245)
== END 2024-08-05 23:59 | disposition home or self-care (01) ==
LOC: ONCMED 12:39
PROVIDERS: Nurse Practitioner Family; PCP Family Medicine; Visit Provider Psychiatry & Neurology Neurology
DX: E53.8 Deficiency of other specified B group vitamins (principal)
CPT/HCPCS: 36415; 80053; 82607; 85025

== ENCOUNTER 2024-11-18 11:26 | Outpatient (CLI) | payer BC, SELFPAY ==
--- NOTE | 2024-11-18 11:32 | MM_ITS ---
WS: [id number] BILATERAL 3D TOMOSYNTHESIS DIGITAL SCREENING MAMMOGRAPHY WITH CAD CLINICAL INFORMATION: SCREENING HISTORY: Screening mammogram. No current complaints. COMPARISON: 2023 TECHNIQUE: Bilateral CC and MLO views. FINDINGS: Scattered fibroglandular densities bilaterally. No suspicious focal mass, asymmetry, calcifications, or architectural distortion. No evidence of malignancy. Incidental punctate calcifications. A few incidental intramammary lymph nodes RIGHT breast. LEFT breast biopsy clip. MM/MM scr tomosynthesis [id number] IMPRESSION: DENSITY: There are scattered areas of fibroglandular density. BI-RADS: 2 - Benign. FOLLOW UP: 1 Year Follow-up Recommend return to annual screening mammography.
== END 2024-11-18 11:27 | disposition home or self-care (01) ==
LOC: RAD 11:27
PROVIDERS: PCP Family Medicine; Visit Provider Family Medicine
DX: Z12.31 Encounter for screening mammogram for malignant neoplasm of breast (principal); R92.333 Mammographic heterogeneous density, bilateral breasts; R92.1 Mammographic calcification found on diagnostic imaging of breast
CPT/HCPCS: 77063; 77067

== ENCOUNTER → 2024-12-01 15:40 | Outpatient (BNVA) | payer BC, SELFPAY | PROVIDERS: PCP Family Medicine; Visit Provider Orthopaedic Surgery | DX: Z01.818 Encounter for other preprocedural examination (principal) | CPT/HCPCS: 36415; 80053; 81001; 85025; 87086 ==

== ENCOUNTER 2024-12-19 07:41 | Day surgery (SDC) | payer BC, SELFPAY ==
[2024-12-19] VITALS (13 sets, daily range): BP systolic 113–162; BP diastolic 58–88; PULSE 71–85; RESP 13–22; TEMP 36.3–36.6; O2SAT 93–100; BMI 26.6
--- NOTE | 2024-12-19 08:37 | ANES.PREANE2 ---
Pre-Anesthetic Assessment Height/Weight: Height 5 ft 8 in Weight 175 lb Temp Pulse Resp BP Pulse Ox O2 Del Method 97.8 F 85 17 162/88 98 Room Air 12/19/24 08:01 12/19/24 08:01 12/19/24 08:01 12/19/24 08:01 12/19/24 08:01 12/19/24 08:01 Preop Diagnosis: Lumbar stenosis with neurogenic claudication Operation Date: 12/19/24 09:25 Proposed Procedures p Lumbar Spine Decompression Lumbar Decompression(Not Applicable) - Dustin Hutton, DO Was Beta Aleks taken within 24 hours: N/A Was Clonidine taken within 24 hours: N/A Last intake: Intake Last Liquid Date 12/18/24 Last Liquid Time 20:00 Last Solid Date 12/18/24 Last Solid Time 20:00 Social No alcohol and No tobacco Exam alert, oriented x 3, clear to auscultation bilaterally and regular rate & rhythm Airway Submandibular: within normal limits Cervical ROM: within normal limits Mallampati: Class II Dentition: full Anesthetic Plan ASA status: 3 Anesthesia: General Other: History of PONV, states that she gets nauseous after every procedure NPO since yesterday evening History of CVA, patient states that she is a little unsteady on the left leg Hypertension on amlodipine Hypothyroidism on Synthroid Labs reviewed from 12/01/2024 and acceptable for procedure Prior echo from 2023 showing EF of 55 to 60% Plan for GETA with TIVA Medications/Allergies Home Medications ?Medication ?Instructions ?Recorded ?Confirmed ?Last Taken ?Type desvenlafaxine succinate 50 mg 50 mg PO DAILY 12/21/20 12/16/24 12/15/24 History tablet,extended release 24 hr (Pristiq) bupropion HBr 348 mg 348 mg PO DAILY 02/26/23 12/16/24 12/15/24 History tablet,extended release 24 hr (Aplenzin) acetaminophen 325 mg capsule 325 mg PO Q4H PRN fever or 06/17/23 12/19/24 12/19/24 Rx postoperative pain pain #60 caps ibuprofen 800 mg tablet 800 mg PO TID PRN pain #60 tabs 06/17/23 12/16/24 Unknown Rx lithium carbonate 300 mg 300 mg PO DAILY 09/29/23 12/16/24 12/15/24 History tablet,extended release aspirin 81 mg chewable tablet 81 mg PO DAILY #30 tabs 12/23/23 12/16/24 12/15/24 Rx alprazolam 1 mg tablet 2 mg PO .q hs 08/03/24 12/19/24 12/18/24 History amlodipine 10 mg tablet (Norvasc) 10 mg PO DAILY #90 tabs 08/03/24 12/19/24 12/19/24 Rx trazodone 100 mg tablet 100 mg PO .q hs 08/03/24 12/16/24 12/14/24 History levothyroxine 112 mcg tablet See Rx Instructions .Route 09/05/24 12/16/24 12/15/24 Rx .COMPLEX #90 tabs B12 1,000 mcg PO DAILY 12/15/24 12/16/24 12/15/24 History Senokot PO DAILY 12/15/24 12/16/24 Unknown History atorvastatin 10 mg tablet 10 mg PO BEDTIME 12/19/24 12/19/24 12/14/24 History Allergies Allergy/AdvReac Type Severity Reaction Status Date / Time No Known Allergies Allergy Verified 12/16/24 09:56 [facility] Anesthesia Medical History Major depression Hypothyroidism Hypertension Surgical History Hx of cataract surgery December 2021 Social History Smoking and tobacco/nicotine status: never used tobacco/nicotine Alcohol intake: current Alcohol intake frequency: holidays/special occasions only Data Anesthesia Cardiac Studies: Echocardiogram 06/06/24 Cardiac Event Monitor 05/24/24
[2024-12-19] MEDS: midazolam 1 mg/mL INJ 2 mL 2 MG IVP (08:39)
--- NOTE | 2024-12-19 09:16 | W.PM.OPSUD ---
Surgery/Procedure H&P Update DATE OF PROCEDURE: December 19, 2024 DATE H&P PERFORMED: 12/01/24 H&P UPDATE INFORMATION: I have reviewed H&P completed within last 30 days, I have examined patient prior to procedure and Changes to prior documentation as noted here (Will change the procedure to L4-5 and L5-S1.) PREOP DIAGNOSIS: Lumbar stenosis with neurogenic claudication PLANNED PROCEDURE: Operation Date: 12/19/24 09:25 Proposed Procedures p Lumbar Spine Decompression Lumbar Decompression(Not Applicable) - Dustin Hutton DO
[2024-12-19] MEDS: ceFAZolin 2,000 mg SDV 2000 MG IVP (09:21)
[2024-12-19] MEDS: lidocaine-epi 1% 20 mL INJ INJECTION (09:56)
--- NOTE | 2024-12-19 10:47 | PM.OP ---
Operative Report Date of procedure: December 19, 2024 Pre-op diagnosis: Lumbar stenosis neurogenic claudication Post-op diagnosis: same Post-op findings: 1. L4-5 laminectomy with partial facetectomy 2. L5-S1 laminectomy with partial facetectomy Surgeon: Dustin Hutton DO Estimated blood loss (mL): 10 Procedure: 1. L4-5 laminectomy with partial facetectomy 2. L5-S1 laminectomy with partial facetectomy Patient is brought to the operative suite. After undergoing anesthesia they are placed in the prone position. All areas of impingement are well padded. Patient is then prepped and draped in the normal sterile fashion. A skin incision is made over the L4/5 level. This is confirmed under c-arm guidance. A series of dilators are passed and the tubular retractor is docked on the L4 lamina. A bovie is used to clear the soft tissue off the lamina and the L 4/5 facet joint. A high speed aubree is then used to perform the laminectomy and take down the medial aspect of the L 4/5 facet joint. A kerrison rongeure was then used to take down the remaining lamina and smooth the edge of the laminectomy up to the point where the ligamentum flavum attaches. Attention was then brought to the medial aspect of the facet joint. The remaining medial aspect of the superior and inferior aspect of the facet joint were taken down with the kerrison from the pedicle of L4 to L 5. The facet joint had significant hypertrophy. Attention was then brought to the Ligamentum Flavum. The ligament was taken down from the lamina of L4 to L5 and out medially to the remaining facet joint. The ligament was thick. The dura was then exposed. The dura was in good repair. The L4 nerve was then traced with a curette out the L4/5 foramen and found to be adequately decompressed. The L5 nerve was traced with a curette around the L5 pedicle. The lateral recess was opened with a kerrison helping to further decompress the L5 nerve. Wound is then irrigated copiously with saline and surgiflo is used to stop any bleeding. The tubular retractor is removed A skin incision is made over the L5/S1 level. This is confirmed under c-arm guidance. A series of dilators are passed and the tubular retractor is docked on the L5 lamina. A bovie is used to clear the soft tissue off the lamina and the L 5/S1 facet joint. A high speed aubree is then used to perform the laminectomy and take down the medial aspect of the L 5/S1 facet joint. A kerrison rongeure was then used to take down the remaining lamina and smooth the edge of the laminectomy up to the point where the ligamentum flavum attaches. Attention was then brought to the medial aspect of the facet joint. The remaining medial aspect of the superior and inferior aspect of the facet joint were taken down with the kerrison from the pedicle of L5 to S1. The facet joint had significant hypertrophy. Attention was then brought to the Ligamentum Flavum. The ligament was taken down from the lamina of L5 to S1 and out medially to the remaining facet joint. The ligament was thick. The dura was then exposed. The dura was in good repair. The L5 nerve was then traced with a curette out the L5/S1 foramen and found to be adequately decompressed. The S1 nerve was traced with a curette around the S1 pedicle. The lateral recess was opened with a kerrison helping to further decompress the S1 nerve. Wound is then irrigated copiously with saline and surgiflo is used to stop any bleeding. The tubular retractor is removed and the wound is closed with vicryl and monocryl suture. Steri strips were applied. A sterile dressing is then placed. Patient was then placed in the supine position and transferred to the PACU in stable condition.
[2024-12-19] MEDS: fentaNYL 50 mcg/mL INJ 2mL IVP (11:07)
[2024-12-19] MEDS: HYDROcodone-acetaminophen 5-325 mg Tablet 1 TAB PO (11:40)
--- NOTE | 2024-12-19 12:15 | ANE.PACU2 ---
Inpatient post-anesthesia follow up: Airway intact: Yes Vital signs: Temperature 97.8 F Pulse Rate 78 Respiratory Rate 17 Blood Pressure 128/77 Pulse Oximetry 95 Oxygen Delivery Me thod Room Air Oxygen Flow Rate 8 Fraction of Inspir ed Oxygen Hydration adequate: Yes Nausea and vomiting: No Pain level: 1 Mental status: Baseline
--- NOTE | 2024-12-19 12:38 | XR_ITS ---
WS: [id number] XR lumbar spine 1V [id number] REASON FOR EXAM: or pic, decompression FINDINGS: Surgical instrument overlying the left L4-L5 disc space. XR/XR lumbar spine 1V [id number] IMPRESSION: Intraoperative lumbar level localization as above.
== END 2024-12-19 12:15 | disposition home or self-care (01) ==
PROVIDERS: PCP Family Medicine; Visit Provider Orthopaedic Surgery
PROC: (CPT 63005; principal; 2024-12-19 09:25)
DX: M48.062 Spinal stenosis, lumbar region with neurogenic claudication (principal); Z86.73 Personal history of transient ischemic attack (TIA), and cerebral infarction without residual deficits; I10 Essential (primary) hypertension; E03.9 Hypothyroidism, unspecified; Z79.82 Long term (current) use of aspirin; F32.9 Major depressive disorder, single episode, unspecified
CPT/HCPCS: 63047; 63048; 72020; 76000; J0690; J1100; J1885; J2250; J2405; J2704; J3010; J3490; J7030; J9999